=== PATIENT | male | born 1985 | race Caucasian/White ===

== ENCOUNTER 2020-02-25 19:22 | Emergency (ER) | payer MEDICAID, OTHER, SELFPAY ==
[~2020-02-25] VITALS: Ht 188 cm; Wt 117.0 kg
--- NOTE | 2020-02-25 20:11 | NUR ---
PT STATES HE BROUGHT HIMSELF IN TO THE HOSPITAL INSTEAD OF DRIVING TO WHERE HE KNOWS HE COULD BUY HEROIN TO OVERDOSE AND KILL HIMSELF. PT COMPLIANT WITH ANSWERING QUESTIONS AND ALL BELONGINGS PLACED IN SECURE LOCKER. PT IN SECURE ROOM WITH GARAGE DOORS DOWN. PT STATES HE'S UNABLE TO PEE AT THIS TIME. GIVEN WATER AND EDUCATION ABOUT UA. PT AGREEABLE. PT STATES HE DOESN'T HEAR VOICES BUT "IT'S MORE LIKE MUSIC." NO OBVIOUS RESPONSES TO INTERNAL STIMULI NOTED. PT IS A&O AND COOPERATIVE.
[2020-02-25 20:15] LABS: BASOPHILS % (AUTO) 1 % (0-1); EOSINOPHILS % (AUTO) 4 % (1-7); LYMPHOCYTES % (AUTO) 28 % (22-44); MEAN CORPUSCULAR HEMOGLOBIN 29.4 pg (27.5-34.5); MEAN CORPUSCULAR HGB CONC 34.3 g/dL (33.2-36.2); MEAN PLATELET VOLUME 7.2 fL (7.4-10.4); MONOCYTES % (AUTO) 7 % (2-9); NEUTROPHILS % (AUTO) 60 % (42-75); PLATELET COUNT 330 x10^3/uL (130-400); RED BLOOD COUNT 4.88 x10^6/uL (4.38-5.82); RED CELL DISTRIBUTION WIDTH 14.7 % (9.4-14.8)
[2020-02-25 20:16] LABS: MD NO
[2020-02-25 20:24] LABS: ALBUMIN 4.2 g/dL (3.4-5.0); ANION GAP 4 mmol/L (5-15); CALCIUM 9.3 mg/dL (8.5-10.1); CHLORIDE 109 mmol/L (98-107)
[2020-02-25 20:28] LABS: ALANINE AMINOTRANSFERASE 42 U/L (12-78); ALKALINE PHOSPHATASE 94 U/L (45-117); BILIRUBIN,TOTAL 0.5 mg/dL (0.2-1.0); CREATININE 1.29 mg/dL (0.7-1.3); SALICYLATE LEVEL < 1.7 mg/dL (2.8-20.0)
--- NOTE | 2020-02-25 20:32 | NUR ---
derek odonnell: Sister,
--- NOTE | 2020-02-25 20:42 | NUR ---
TP RN: PT REFUSED BY [facility], "PATIENT HAS INAPPROPRIATE INSURANCE"
[2020-02-25] MEDS ORDERED: OLAN10TA7 PO (21:23)
[2020-02-25] MEDS ORDERED: DIVA500T2 PO (21:23)
[2020-02-25 22:06] LABS: AMPHETAMINE SCREEN, URINE Negative (Negative); BARBITURATE SCREEN, URINE Negative (Negative); BENZODIAZEPINE SCREEN, URINE Negative (Negative); CANNABINOID SCREEN, URINE Positive (Negative); COCAINE SCREEN, URINE Negative (Negative); METHADONE SCREEN, URINE Negative (Negative); OPIATE SCREEN, URINE Negative (Negative)
--- NOTE | 2020-02-25 23:22 | NUR ---
PT PROVIDED WITH FOOD AT 2200, HOSPITAL BED REQUESTED.
--- NOTE | 2020-02-25 23:30 | NUR ---
SISTER CALLED AND UPDATED WITH PT'S PERMISSION.
--- NOTE | 2020-02-26 05:09 | NUR ---
packet faxed to [facility]
--- NOTE | 2020-02-26 05:48 | NUR ---
Pt has remained sleeping in view of the sitter. Visible chest rise and fall, moving self in sleep to position of comfort. All needs met.
--- NOTE | 2020-02-26 06:53 | NUR ---
REPORT FROM ROBBIN
--- NOTE | 2020-02-26 06:58 | NUR ---
Report to MARIN Galan. Pt sleeping, visible chest rise and fall.
--- NOTE | 2020-02-26 08:00 | NUR ---
WAITING FOR MEAL TRAY. PT SLEEPING.
--- NOTE | 2020-02-26 09:21 | NUR ---
PROVIDED MEAL TRAY, SITTER PRESENT
--- NOTE | 2020-02-26 10:28 | NUR ---
SCOUT PRESENT, PT RESTING ON BRUNILDA
--- NOTE | 2020-02-26 10:38 | NUR ---
MARKET PRESIDENT AT BEDSIDE DISCUSSING POC
[2020-02-26] MEDS ORDERED: OLANZAPINE 10 MG TABLET PO ONE (11:36)
[2020-02-26] MEDS ORDERED: DIVALPROEX 500 MG TAB.ER.24H ONE ×2 (11:42→19:33)
[2020-02-26] MEDS ORDERED: OLANZAPINE 10 MG TABLET ONE (11:42)
[2020-02-26] MEDS ORDERED: DIVALPROEX 500 MG TABLET.DR ONE (11:43)
[2020-02-26] MEDS ORDERED: DIVALPROEX 500 MG TABLET.DR PO ONE (12:00)
--- NOTE | 2020-02-26 12:36 | NUR ---
TASK RN: MEAL TRAY PROVIDED
[2020-02-26] MEDS: SERTRALINE 50MG TABLET PO SCH (14:00)
--- NOTE | 2020-02-26 14:38 | NUR ---
PT RESTING, SITTER PRESENT
[2020-02-26] MEDS ORDERED: SERTRALINE 50MG TABLET ONE (14:53)
--- NOTE | 2020-02-26 16:19 | NUR ---
PT SLEEPING, SITTER PRESENT
--- NOTE | 2020-02-26 18:19 | NUR ---
PROVIDED MEAL TRAY. SITTER PRESENT
--- NOTE | 2020-02-26 18:58 | NUR ---
REPORT FROM MARIN WILSON
[2020-02-26] MEDS: DIVALPROEX 500 MG TAB.ER.24H PO SCH (19:53)
--- NOTE | 2020-02-26 19:56 | NUR ---
pt resting on hospital bed. no acute distress. pleasent, cooperative with me. VSS. medicated per emar. pt states he is ready for bed.
--- NOTE | 2020-02-26 22:00 | NUR ---
pt resting on hospital bed. eyes closed. respirations even and unlabored. sitter at doorway for frequent checks.
--- NOTE | 2020-02-26 23:56 | NUR ---
pt resting on hospital bed. eyes closed. respirations even and unlabored. sitter at doorway for frequent checks.
[2020-02-27] MEDS ORDERED: METHOCARBAMOL 750 MG TABLET ONE (00:52)
[2020-02-27] MEDS ORDERED: OXYcodone/APAP 10/325MG TABLET ONE (00:52)
--- NOTE | 2020-02-27 01:06 | NUR ---
RECEIVED REPORT FROM MARIN LUCIANO. PT. RESTING ON BED WITH EYES CLOSED. NO DISTRESS NOTED. ROOM SECURED. SITTER IN [place].
--- NOTE | 2020-02-27 02:25 | NUR ---
PT. RESTING ON BED WITH NO DISTRESS NOTED. EYES CLOSED. RESPIRATIONS VISIBLE AND NON-LABORED. ROOM REMAINS SECURED.
--- NOTE | 2020-02-27 03:56 | NUR ---
PT. RESTING ON BED WITH EYES CLOSED. RESPIRATIONS REMAIN EVEN, NON-LABORED.
--- NOTE | 2020-02-27 06:58 | NUR ---
REPORT TO MARIN MILLS.
[2020-02-27] MEDS ORDERED: SERTRALINE 50MG TABLET ONE (08:18)
[2020-02-27] MEDS ORDERED: OLANZAPINE 10 MG TABLET ONE (08:18)
--- NOTE | 2020-02-27 08:20 | NUR ---
PT GIVEN MEAL TRAY, MEDICATED PER MAY. VSS, NAD NOTED. SITTER IN PLACE
[2020-02-27] MEDS: OLANZAPINE 10 MG TABLET PO SCH (08:31)
[2020-02-27] MEDS: SERTRALINE 50MG TABLET PO SCH (08:31)
--- NOTE | 2020-02-27 10:50 | NUR ---
PT CONTINUES TO REST ON HOSPITAL BED AT THIS TIME, VISIBLE CHEST RISE AND FALL NOTED, SI PRECAUTIONS IN PLACE
--- NOTE | 2020-02-27 12:35 | NUR ---
MEAL TRAY PROVIDED, NO OTHER NEEDS
--- NOTE | 2020-02-27 16:14 | NUR ---
PT CONTINUES TO REST ON HOSPITAL BED, VISIBLE CHEST RISE AND FALL NOTED. SI PRECAUTIONS IN PLACE
--- NOTE | 2020-02-27 19:04 | NUR ---
TOOK OVER FOR GENE FUNES PT SLEEPING.
[2020-02-27] MEDS: DIVALPROEX 500 MG TAB.ER.24H PO SCH (21:00)
--- NOTE | 2020-02-27 21:18 | NUR ---
pPT WATCHING TV NO NEW COMPLAINTS WANTS SLEEPING MEDS VITALS TAKEN...
[2020-02-27] MEDS ORDERED: DIVALPROEX 500 MG TAB.ER.24H ONE (21:44)
--- NOTE | 2020-02-28 00:04 | NUR ---
pt sleeping no new complaints
--- NOTE | 2020-02-28 01:12 | NUR ---
PT SLEEPING NO REQUESTS NO NEW COMPLAINTS...
--- NOTE | 2020-02-28 03:25 | NUR ---
soundly sleeping no new complaints..
--- NOTE | 2020-02-28 05:22 | NUR ---
PT SLEEPING NO NEW COMPLAINTS ...
--- NOTE | 2020-02-28 07:10 | NUR ---
Report from Albertina Tobias. Patient nbreakfast tray ordered. Sitter outside room.
--- NOTE | 2020-02-28 07:47 | NUR ---
Patient resting, eyes closed, right lateral position, even resp rate and effort. Sitter outside of room.
--- NOTE | 2020-02-28 08:11 | NUR ---
Patient awake, assessed, calm and cooperative. Sitter outside room. VS checked. Breakfast tray provided.
--- NOTE | 2020-02-28 09:50 | NUR ---
Patient has eaten some oranges, medicated regular medications. Calm coopertaive, sitter outside room.
--- NOTE | 2020-02-28 09:58 | NUR ---
Note josué in EDM - 02/28/[address] RAYA IN DEPT, AWARE OF PT BP, NO UOP. PT A&O X4. PT NOT SYMPTOMATIC. NO NEW ORDERS AT THIS TIME.
[2020-02-28] MEDS: OLANZAPINE 10 MG TABLET PO SCH (10:06)
[2020-02-28] MEDS: SERTRALINE 50MG TABLET PO SCH (10:06)
--- NOTE | 2020-02-28 10:32 | NUR ---
Patient on the phone in [facility] mother, sitter watching patient.
--- NOTE | 2020-02-28 11:46 | NUR ---
Doris FIELD MARKETING COORDINATOR at bedside to discuss plan of care.
--- NOTE | 2020-02-28 12:30 | NUR ---
Preceptor RN: meal tray delivered
[2020-02-28 14:08] VITALS: BP 127/81
== END 2020-02-28 13:25 ==
LOC: ED 20:48
DX: F32.9 Major depressive disorder, single episode, unspecified (principal); R45.851 Suicidal ideations
CPT/HCPCS: 36415; 80053; 80164; 80299; 80307; 80320; 80329; 85025; 99284; 99285; G0480